=== PATIENT | male | born 1940 | race Caucasian/White ===

== ENCOUNTER → 2024-03-01 06:36 | Outpatient (REF) | payer MEDICARE, OTHER, SELFPAY ==
[2024-03-01 09:02] LABS: Blood Urea Nitrogen 35 mg/dl (9-20); Calcium 9.5 mg/dl (8.4-10.2); Carbon Dioxide 27 mmol/L (22-30); Chloride 106 mmol/L (98-107); Glucose 87 mg/dl (70-99); Potassium 5.3 mmol/L (3.5-5.1); Sodium 135 mmol/L (135-145); eGFR > 60.00
== END ==
LOC: REG 06:36
PROVIDERS: ATTENDING PHYSICIAN Internal Medicine Cardiovascular Disease; FAMILY PHYSICIAN Physician Assistant Medical
DX: I10 Essential (primary) hypertension (principal)
CPT/HCPCS: 36415; 80048

== ENCOUNTER → 2024-03-11 06:57 | Outpatient (REF) | payer MEDICARE, OTHER, SELFPAY | LOC: HWRCS 06:57 | PROVIDERS: ATTENDING PHYSICIAN Internal Medicine Cardiovascular Disease; FAMILY PHYSICIAN Physician Assistant Medical | DX: I25.5 Ischemic cardiomyopathy (principal); I25.2 Old myocardial infarction; I34.0 Nonrheumatic mitral (valve) insufficiency | CPT/HCPCS: 93306 ==

== ENCOUNTER → 2024-04-09 11:13 | Outpatient (REF) | payer MEDICARE, OTHER, SELFPAY ==
[2024-04-09 12:02] LABS: % Basophils 0.4 % (0-2); % Immature Granulocytes 0.2 % (0-0.5); % Lymphocytes 23.5 % (20.5-51.1); % Monocytes 14.4 % (1.7-9.3); % Neutrophils 49.5 % (42.2-75.2); Absolute Eosinophils 0.6 10^3/uL (0-0.7); Absolute Lymphocytes 1.1 10^3/uL (1.2-3.4); Absolute Monocytes 0.7 10^3/uL (0.1-0.6); Absolute Neutrophils 2.3 10^3/uL (1.4-6.5); Hematocrit 39.4 % (39.0-52.0); Hemoglobin 12.9 g/dL (13.0-18.0); Mean Corp Hgb Conc. 32.7 g/dL (33.0-37.0); Mean Corpuscular Hgb 33.7 pg (27.0-31.0); Mean Corpuscular Volume 102.9 fL (80.0-94.0); Mean Platelet Volume 9.2 fL (7.4-10.4); Nucleated Red Blood Cells % 0 % (-); Platelet Count 198 10^3/uL (130-400); Red Blood Cell Count 3.83 10^6/uL (4.70-6.10); Red Cell Dist. Width 13.6 % (11.5-14.5); White Blood Cell Count 4.6 10^3/uL (4.8-10.8)
[2024-04-09 12:58] LABS: PSA, Total - Screen 2.53 ng/ml (0.0-4.0)
== END ==
LOC: REG 11:13
PROVIDERS: ATTENDING PHYSICIAN Physician Assistant Medical
DX: I10 Essential (primary) hypertension (principal); I25.5 Ischemic cardiomyopathy; E78.2 Mixed hyperlipidemia; R35.1 Nocturia; Z12.5 Encounter for screening for malignant neoplasm of prostate
CPT/HCPCS: 36415; 85025; G0103

== ENCOUNTER → 2024-08-27 07:49 | Outpatient (REF) | payer MEDICARE, OTHER, SELFPAY ==
[2024-08-27 10:37] LABS: ALT (SGPT) 33 U/L (0-50); AST (SGOT) 29 U/L (17-59); Albumin 4.2 g/dl (3.5-5.0); Alkaline Phosphatase 77 U/L (38-126); Blood Urea Nitrogen 49 mg/dl (9-20); Carbon Dioxide 24 mmol/L (22-30); Chloride 107 mmol/L (98-107); Glucose 105 mg/dl (70-99); HDL Cholesterol 77 mg/dl; LDL Cholesterol, Calculated 61 mg/dl; Potassium 4.7 mmol/L (3.5-5.1); Sodium 143 mmol/L (135-145); Total Bilirubin 1.4 mg/dl (0.2-1.3); Total Cholesterol 145 mg/dl (50-199); Total Protein 6.7 g/dl (6.3-8.2); Triglyceride 38 mg/dl (10-149); Very Low Density Lipoprotein 7 mg/dl (0-30); eGFR 46.19
[2024-08-27 11:32] LABS: Folate 9.3 ng/ml (2.76-20); Vitamin B12 194 pg/ml (239-931)
== END ==
LOC: REG 07:49
PROVIDERS: ATTENDING PHYSICIAN Internal Medicine Cardiovascular Disease; FAMILY PHYSICIAN Family Medicine
DX: D75.89 Other specified diseases of blood and blood-forming organs (principal); I10 Essential (primary) hypertension; E78.00 Pure hypercholesterolemia, unspecified; Z79.899 Other long term (current) drug therapy
CPT/HCPCS: 36415; 80053; 80061; 82607; 82746

== ENCOUNTER → 2024-09-09 10:28 | Outpatient (REF) | payer MEDICARE, OTHER, SELFPAY | LOC: RCS 10:28 | PROVIDERS: ATTENDING PHYSICIAN Internal Medicine Cardiovascular Disease; FAMILY PHYSICIAN Physician Assistant Medical | DX: I35.0 Nonrheumatic aortic (valve) stenosis (principal) | CPT/HCPCS: 93306 ==

== ENCOUNTER 2024-10-22 10:13 | Emergency (ER) | payer MEDICARE, OTHER, SELFPAY ==
[2024-10-22 10:24] VITALS: BP 108/69
[2024-10-22 11:26] VITALS: BMI 26.6
--- NOTE | 2024-10-22 11:38 | EDRN ---
Keith Raya PA in room w/ pt at this time.
--- NOTE | 2024-10-22 11:55 | ED.GENMED ---
History of Present Illness
General
Chief Complaint: Musculo-Skeletal Complaint
Time Seen by Provider: 10/22/24 11:25
History of Present Illness
History of Present Illness:
84-year-old male presents to the emergency department for evaluation of redness and swelling to the left wrist that developed 2 days ago. Denies any injury but does state that he was moving furniture when the initial pain began. No prior history
of gout. No fevers or chills. Does note that he recently had a dental procedure done last week and is currently on amoxicillin for this
Past History
Past History
ED Past Medical History: None
ED Past Surgical History: None
Social History
Tobacco: Non-smoker
Personal:
Living: with family
Employment: Retired (Full [employer])
Review of Systems
Review of Systems
Allergies reviewed?: Yes
All Other Systems: ROS reviewed and negative except as documented in HPI and ROS
Phy Exam
Physical Exam
Physical Exam:
GEN: Well appearing, NAD, WDWN
HEENT: Oral mucosa moist, no scleral icterus
Cardiac: Regular rate
Lung: No respiratory distress, no tachypnea
MSK: Diffuse erythema with a left wrist effusion, mild pain with passive range of motion
Skin: Good color, no pallor or jaundice, no rashes
Neuro: AO x3, moves all extremities freely
Psych: Calm, cooperative
Course
Orders/Labs/Results
Orders:
Orders
10/22/24 10:28
Wrist, Left 3 Views CR [CR Wrist - Left Min 3 Views] Urgent
Comment:
Reason For Exam: swelling
Vital Signs
Initial and Last Documented VS:
Initial Vital Signs
Temp Pulse Resp BP Pulse Ox
98 F 82 16 108/69 98
10/22/24 10:24 10/22/24 10:24 10/22/24 10:24 10/22/24 10:24 10/22/24 10:24
Last Documented Vital Signs
Temp Pulse Resp BP Pulse Ox
98 F 82 20 123/85 98
10/22/24 10:24 10/22/24 12:08 10/22/24 12:08 10/22/24 12:08 10/22/24 10:24
MDM/Problems Addressed
MDM/Problems Addressed:
I performed a limited bedside ultrasound and I was unable to find an acceptable access point for aspiration of the left wrist. Given the lack of trauma I suspect this is an inflammatory arthropathy particular given the joint irregularity seen on
x-ray. Patient is on multiple cardiac meds thus is not suitable for NSAIDs, will place him on a course of steroids. At this time low clinical suspicion for septic arthritis however advised to return if symptoms worsen in the next 48 hours
*Critical Care Note
Total Time (30-74mins, 75-104mins- exclusive of procedures): Not Applicable
ED Attending Note
-
Portions of this chart may have been created with voice recognition software.� Occasional wrong word or��sound alike� substitutions may have occurred due to the inherent limitations of voice recognition software.
Discharge Plan
Departure
Patient Disposition: Home (Routine Discharge)
Date of Disposition: 10/22/24
Time of Disposition: 11:56
Patient with high blood pressure during this ER visit?: No
Discharge Problem:
Effusion of joint of left wrist
Instructions: Swollen Joints (DC)
Prescriptions:
New
prednisone 20 mg tablet
40 mg PO DAILY 5 Days Qty: 10 0RF
No Action
cholecalciferol (vitamin D3) 2,000 UNIT tablet
2,000 unit PO DAILY
atorvastatin 40 MG tablet
40 mg PO QPM Qty: 30 6RF
aspirin 81 MG tablet,chewable
81 mg PO DAILY Qty: 30 6RF
ticagrelor [Brilinta] 90 MG tablet
90 mg PO BID
amiodarone [Pacerone] 200 MG tablet
200 mg PO DAILY
carvedilol 3.125 MG tablet
3.125 mg PO HS
Referrals:
Irish Burnett PA [Family Provider] -
Activity Restrictions/Additional Instructions:
Return if symptoms worsen or do not improve in the next 24-48 hours
Interventions
Interventions:
*Risk Screen - Suicide Last Done: 10/22/24 10:24
*General Assessment Last Done: 10/22/24 11:22
*Neglect/Abuse Screening Last Done: 10/22/24 10:24
ED- Fall Risk Assessment Last Done: 10/22/24 11:22
*ED COVID-19 Vaccine History Last Done: 10/22/24 11:22
*Nursing Disposition Last Done: 10/22/24 12:09
ED-Musculoskeletal Assessment Last Done: 10/22/24 11:26
Discharge Date and Time
Discharge Date/Time: 10/22/24 12:10
Print Language: SLOVENIAN
[2024-10-22 12:08] VITALS: BP 123/85
== END 2024-10-22 12:10 | disposition home or self-care (01) ==
LOC: EMR 10:13
PROVIDERS: EMERGENCY PHYSICIAN Student in an Organized Health Care Education/Training Program; FAMILY PHYSICIAN Physician Assistant Medical
DX: M25.432 Effusion, left wrist (principal)
CPT/HCPCS: 99283; 73110

== ENCOUNTER → 2024-12-18 07:38 | Outpatient (REF) | payer MEDICARE, OTHER, SELFPAY ==
[2024-12-18 09:50] LABS: % Basophils 0.8 % (0-2); % Immature Granulocytes 1.5 % (0-0.5); % Lymphocytes 25.1 % (20.5-51.1); % Monocytes 12.6 % (1.7-9.3); Absolute Eosinophils 0.5 10^3/uL (0-0.7); Absolute Immature Granulocytes 0.1 10^3/uL (0-0.05); Absolute Lymphocytes 1.3 10^3/uL (1.2-3.4); Absolute Monocytes 0.7 10^3/uL (0.1-0.6); Absolute Neutrophils 2.6 10^3/uL (1.4-6.5); Hemoglobin 14.3 g/dL (13.0-18.0); Mean Corp Hgb Conc. 33.3 g/dL (33.0-37.0); Mean Corpuscular Hgb 33.6 pg (27.0-31.0); Mean Corpuscular Volume 100.9 fL (80.0-94.0); Mean Platelet Volume 9.3 fL (7.4-10.4); Nucleated Red Blood Cells % 0 % (-); Platelet Count 195 10^3/uL (130-400); Red Blood Cell Count 4.26 10^6/uL (4.70-6.10); Red Cell Dist. Width 13.9 % (11.5-14.5); White Blood Cell Count 5.2 10^3/uL (4.8-10.8)
[2024-12-18 10:19] LABS: ALT (SGPT) 30 U/L (0-50); AST (SGOT) 30 U/L (17-59); Albumin 3.8 g/dl (3.5-5.0); Alkaline Phosphatase 96 U/L (38-126); Blood Urea Nitrogen 31 mg/dl (9-20); Calcium 9.3 mg/dl (8.4-10.2); Carbon Dioxide 28 mmol/L (22-30); Chloride 104 mmol/L (98-107); Glucose 83 mg/dl (70-99); Potassium 4.2 mmol/L (3.5-5.1); Sodium 138 mmol/L (135-145); Total Bilirubin 1.3 mg/dl (0.2-1.3); eGFR > 60.00
== END ==
LOC: REG 07:38
PROVIDERS: ATTENDING PHYSICIAN Internal Medicine Cardiovascular Disease; FAMILY PHYSICIAN Physician Assistant Medical
DX: I25.5 Ischemic cardiomyopathy (principal); I50.22 Chronic systolic (congestive) heart failure
CPT/HCPCS: 36415; 80053; 85025

== ENCOUNTER 2024-12-27 11:05 | Day surgery (SDC) | payer MEDICARE, OTHER, SELFPAY ==
[2024-12-27] VITALS (9 sets, daily range): BP systolic 90–141; BP diastolic 58–78
--- NOTE | 2024-12-27 08:17 | W.ICD.CONTRA ---
Post ICD/SCARFER-D
-
History of SC?: Yes
LV Function
Left ventricular function study result?: Ejection Fraction </= 35%
ACEI/ARB/ARNI
Patient already on ACEI/ARB/ARNI: Yes
Beta-Mike
Patient already on Beta Mike: Yes
--- NOTE | 2024-12-27 12:50 | ITS.CL.ICD ---
Building Service Worker - ICD
Implantable Cardioverter Defibrillator
Procedure Report:
Dual Chamber Implantable Cardioverter Defibrillator Generator Change:
Mr. Mohamud is a very pleasant 84 years old gentleman with ischemic cardiomyopathy with chronic systolic heart failure, NYHA class III s/p a dual chamber ICD at the end of battery life is here for generator change.
Indications: Severe systolic dysfunction s/p dual chamber ICD now with elective replacement indicator
Date of the Procedure: 12/27/2024
Pre-Operative Diagnosis: Ischemic cardiomyopathy
Post-Operative Diagnosis: Ischemic cardiomyopathy
Procedure Performed: DUAL CHAMBER IMPLANTABLE CARDIOVERTER DEFIBRILLATOR GENERATOR CHANGE
Performing Physician:
Aubrey Cullen MD
Assistants:
EP staff
Anesthesia:
See anesthesia records
Detailed Description of the Procedure:
The patient was identified using hospital identification and informed consent obtained for the procedure. The risks were explained including, but not limited to: Bleeding, infection, arrhythmia, stroke, vascular/cardiac/lung puncture, surgery,
pacemaker dependency/device malfunction. All questions were answered.
The patient was brought to the electrophysiology laboratory in stable condition in fasting state. Continuous electrocardiographic and hemodynamic monitoring was initiated.
The initial rhythm was normal sinus rhythm. The device tachy-therapies were turned off.
The procedure site was meticulously prepared with surgical scrub and allowed to dry with no pooling. Sterile draping was applied to cover the procedure site. The image intensifier was draped with sterile bag and positioned over the patient.
The left infraclavicular region was prepped and draped in the usual sterile fashion. Local anesthesia was administered subcutaneously using 1% lidocaine / bupivacaine. The incision was made on the previous scar. The old ICD generator was accessed
and the adhesions were removed with care to avoid damage to the leads. The ICD capsule was cut to access the generator. The old device was attached to the underlying fascia with a suture and the suture was cut to free the device. It was removed from
the body. The Weitlaner retractor was placed in the incision and used as access to skin for unipolar pacing.
The leads were gradually removed and placed in the respective locations in the newer generator.
The old pocket and capsule was modified and the excessive scar was removed. A TYRX absorbable antibacterial envelope was used and the device was placed in the pouch with leads and placed in the modified pocket. There was excellent sensing, pacing,
and impedance from the leads.�Bovie cautery, and antibiotics were used.
The wound was irrigated thoroughly with antibiotic solution and closed in 3 layers using 2-0, VLoc sutures followed by two layers of 4-0 V loc sutures. Steri-Strips and a bandage were applied externally.�
The device was turned back on to initial setting.
Procedure End:
The procedure was tolerated well. A bandage was applied to the incision area.
Estimated Blood loss:
1 cc
Fluoro time:
0 min
Specimens Removed:
No cultures and no specimens were obtained. No intraoperative pathology was identified.
Urine output:
None
Packs / Drains/ Tubes:
None
Instrument / Sponge Count Correct:
Yes
Complications of the Procedure:
None
Condition of Patient at Time of Transfer:
Hemodynamically stable with no neurological or vascular compromise.
Device information:�
Generator: Jawbone; Model: [id number]; Serial # [id number]�
Atrial Lead: Jawbone; Model: [id number]; Serial # [id number]
Measured data in the right atrium was sensing of2 mV, impedance of 520 ohms and threshold of 0.5 V at 0.4ms�
RV Lead: Medtronic; Model: [id number]; Serial # [id number]
Measured data in the RV lead was sensing of 9 mV, impedance of 600ohms and threshold of 0.75 V at 0.4ms�
PROGRAMMING PARAMETERS:�
Reggie parameter settings were AAIR <=>DDDR 60-130 bpm. �
����������� Mode switch: On
����������� Paced AV delay: 130 ms
����������� Sensed AV delay: 1200 ms
����������� Rate Adaptive A-V Interval: Off
����������� Mode switched to VVIR now.
Output parameters:
����������������������� Amplitude (V)������������� Pulse Width (ms)������� Sensitivity (mV)
����������� RA: ����� 1.5 ����������������� 0.4������������������ 0.3
����������� RV:������ 1.5������������������ 0.4������������������ 0.3
Tachy parameter settings:
����������� SVT discrimination: On
����������� AF/AFl: On
����������� SVT limit: 260 msec
����������� VT zone:
����������������������� Slow VT: 150 - 167 bpm --> Monitor
����������������������� Fast VT: 167-188 bpm --> ATP then CV
����������������������� VF: > 188 bpm --> Shock x6 (ATP before and during)
�����������
Summary:
Successful generator change of dual chamber Medtronic ICD pacemaker
Results/Recommendations:
1. Please provide patient with adequate pain control�
Instructions to be given to patient:�
- Please follow up with [facility] at [address] [place] [address] ([phone]) to get your wound checked within 7 days of your discharge.
- Do not wet incision site until after it is evaluated at cardiology clinic. No showers until then. Sponge baths are OK.�
- Allow 'steri strips' to fall off on their own�
- If you notice any fevers, shortness of breath, lightheadedness, chest pain, or worsening swelling in the wound site, please contact the arrhythmia clinic, contact your pan puller, or present to the hospital for evaluation.�
Aubrey Cullen MD
Electrophysiology
== END 2024-12-27 14:20 | disposition home or self-care (01) ==
LOC: CATH 11:05
PROVIDERS: ATTENDING PHYSICIAN Internal Medicine Cardiovascular Disease; FAMILY PHYSICIAN Physician Assistant Medical; OTHER PHYSICIAN Internal Medicine Cardiovascular Disease
DX: Z45.02 Encounter for adjustment and management of automatic implantable cardiac defibrillator (principal); I25.5 Ischemic cardiomyopathy; I50.22 Chronic systolic (congestive) heart failure; Z79.82 Long term (current) use of aspirin; Z79.899 Other long term (current) drug therapy; Z79.84 Long term (current) use of oral hypoglycemic drugs
CPT/HCPCS: 33263; C1721

== ENCOUNTER → 2025-03-02 09:41 | Outpatient (REF) | payer MEDICARE, OTHER, SELFPAY ==
[2025-03-02 11:25] LABS: Vitamin B12 748 pg/ml (239-931)
== END ==
LOC: REG 09:41
PROVIDERS: ATTENDING PHYSICIAN Physician Assistant Medical
DX: E53.8 Deficiency of other specified B group vitamins (principal)
CPT/HCPCS: 36415; 82607

== ENCOUNTER → 2025-05-26 13:33 | Outpatient (REF) | payer MEDICARE, OTHER, SELFPAY ==
--- NOTE | 2025-05-26 14:56 | CARDSERVDEF ---
Echocardiogram with Definity completed after protocol screening completed. Allergies verified.
Patent IV site: _Right median antecubital 22 G PC site clear____
IV site flushed with 0.9% NaCl pre and post administration.
Diluted bolus method utilized to enhance visualization of ventricular martines.
Total volume given: __4__ mL
Patient tolerated all procedures well without complications.
Heplock D/C ed at 1453, site clear. Pressure held, no bleeding, 2x2 applied and taped. Pt offers no complaints.
== END ==
LOC: RCS 13:33
PROVIDERS: ATTENDING PHYSICIAN Internal Medicine Cardiovascular Disease; FAMILY PHYSICIAN Physician Assistant Medical
DX: I25.5 Ischemic cardiomyopathy (principal); I10 Essential (primary) hypertension; I50.22 Chronic systolic (congestive) heart failure; I35.0 Nonrheumatic aortic (valve) stenosis
CPT/HCPCS: 93306; Q9950

== ENCOUNTER 2025-06-22 10:39 | Inpatient (IN) | payer MEDICARE, OTHER, SELFPAY ==
--- NOTE | 2025-06-08 12:20 | CM ---
Addendum entered by Erma Licona RN 06/09/25 10:18:
Demographics: Confirmed.
Living situation: lives independently with
Support Person Post Operatively:
History of
VN:NONE
SNF: None
Outpatient: [facility]
Has patient purchased required equipment: yes
PCP: Dr. Burnett
Pharmacy: [facility]
Post Operative Discharge Plan: Home with outpatient PT
Original Note:
CM left message on 05/31 and 06/08 for orthopedic IA.
[2025-06-08 13:53] VITALS: BMI 23.7
[2025-06-08 13:57] LABS: Hematocrit 42.7 % (39.0-52.0); Hemoglobin 14.5 g/dL (13.0-18.0); Mean Corp Hgb Conc. 34.0 g/dL (33.0-37.0); Mean Corpuscular Volume 101.2 fL (80.0-94.0); Platelet Count 198 10^3/uL (130-400); Red Cell Dist. Width 14.0 % (11.5-14.5)
[2025-06-08 14:48] VITALS: BMI 23.7
[2025-06-08 16:04] LABS: ALT (SGPT) 26 U/L (0-50); AST (SGOT) 27 U/L (17-59); Albumin 4.1 g/dl (3.5-5.0); Alkaline Phosphatase 83 U/L (38-126); Blood Urea Nitrogen 28 mg/dl (9-20); Calcium 9.4 mg/dl (8.4-10.2); Carbon Dioxide 25 mmol/L (22-30); Chloride 105 mmol/L (98-107); Estimated Creatinine Clearance 42 ml/min; Glucose 137 mg/dl (70-99); Potassium 4.3 mmol/L (3.5-5.1); Sodium 137 mmol/L (135-145); Total Protein 6.4 g/dl (6.3-8.2); eGFR 54.85
[2025-06-09 09:32] LABS: Glycohemoglobin (HgbA1c) 5.4 % (4.0-5.6)
[2025-06-22] VITALS (12 sets, daily range): BP systolic 84–110; BP diastolic 48–64; PULSE 57; O2SAT 98; BMI 23.7
[2025-06-22] MEDS: CELEBREX 200 MG PO (11:34)
[2025-06-22] MEDS: TYLENOL 650 MG PO ×3 (11:34→20:04)
[2025-06-22] MEDS: NORMOSOL-R/PLASMALYTE-A 1000 IV ×2 (11:47→16:55)
--- NOTE | 2025-06-22 11:52 | W.PN.ORTHO ---
Today's Communication / Plan
-
d/c when stable
Assessment
.
Dressing:
Clean, dry and intact.
Assessment:
[id number] LAD 12/2014
Vtach-s/p ICD 04/2015
ICM/MTnII-30-288%
-moderate
-tele
-decrease IVF rate
-daily weights
-given need for GDMT-+ Midodrine w/ parameter to avoid orthostasis
Mild renal impairment compared to baseline-avoid excessive NSAIDs/nephrotoxic agents
Plan
.
Surgery / Date: R JENNIFER Case 06/22/25
DVT Prophylaxis: Aspirin
Activity:
Out of bed.
PT/OT
Discharge Plan: Home w/ Outpatient PT
Vital Signs and Labs
.
Vital Signs and Labs:
Lab Results
06/08/25 13:34
06/08/25 13:34
Temp Pulse Resp BP Pulse Ox
98.1 F 61 12 110/62 99
06/22/25 11:13 06/22/25 11:13 06/22/25 11:13 06/22/25 11:13 06/22/25 11:13
--- NOTE | 2025-06-22 12:09 | W.DS.TRANS ---
DC Summary - Files Supervisor
-
Discharge Instructions:
Sleep Apnea Risk Intermediate
Discharge Diagnosis/Procedures R TKA Dr. Case 06/22/25
Diet Diabetic, Carb Controlled
Activity With Walker
Driving Restrictions No driving
Bathing Restrictions OK to Shower
Other Services PT
Instructions:
Stand-Alone Forms: Total Hip/Knee Replacement D/C
Changes to Home Medications: Yes
Discharge Medications:
DC Medications w/original date entered in [employer]
cholecalciferol (vitamin D3) 50 mcg (2,000 unit) tablet 2,000 unit PO QPM 12/10/14
carvedilol 3.125 mg tablet 3.125 mg PO BID 04/10/15
cyanocobalamin (vitamin B-12) 1,000 mcg tablet (Vitamin B-12) 1,000 mcg PO QPM 12/27/24
empagliflozin 10 mg tablet (Jardiance) 10 mg PO DAILY 12/27/24
atorvastatin 80 mg tablet 80 mg PO DAILY 06/07/25
sacubitril 24 mg-valsartan 26 mg tablet (Entresto) 1 tab PO BID 06/07/25
mupirocin 2 % topical ointment 1 applic intranasal BID #1 tube 06/08/25
dexamethasone 4 mg tablet 4 mg PO BID Anti-inflammatory #7 tabs 06/17/25
famotidine 20 mg tablet (Pepcid) 20 mg PO HS #30 tabs 06/17/25
gabapentin 300 mg capsule 300 mg PO HS neuropathic pain/sleep #10 caps 06/17/25
ondansetron HCl 4 mg tablet 4 mg PO Q6H PRN nausea and vomiting #30 tabs 06/17/25
oxycodone 5 mg tablet 5 - 10 mg (1 - 2 x 5 mg) PO Q6H PRN moderate-severe pain #30 tabs 06/17/25
aspirin 325 mg tablet 325 mg PO DAILY blood clot prevention #1 tab 06/22/25
azelastine 2 spray intranasal BID 06/22/25
docusate sodium 100 mg capsule (Colace) 100 mg PO BID stool softner #1 cap 06/22/25
magnesium hydroxide 400 mg/5 mL oral suspension (Milk of Magnesia) 30 ml PO HS PRN constipation #1 mL 06/22/25
sennosides 8.6 mg tablet (Senokot) 17.2 mg (2 x 8.6 mg) PO BID laxative #2 tabs 06/22/25
Home Medication Changes
mupirocin 2 % topical ointment 1 applic intranasal BID #1 tube 06/08/25
dexamethasone 4 mg tablet 4 mg PO BID Anti-inflammatory #7 tabs 06/17/25
famotidine 20 mg tablet (Pepcid) 20 mg PO HS #30 tabs 06/17/25
gabapentin 300 mg capsule 300 mg PO HS neuropathic pain/sleep #10 caps 06/17/25
ondansetron HCl 4 mg tablet 4 mg PO Q6H PRN nausea and vomiting #30 tabs 06/17/25
oxycodone 5 mg tablet 5 - 10 mg (1 - 2 x 5 mg) PO Q6H PRN moderate-severe pain #30 tabs 06/17/25
aspirin 325 mg tablet 325 mg PO DAILY blood clot prevention #1 tab 06/22/25
azelastine 2 spray intranasal BID 06/22/25
docusate sodium 100 mg capsule (Colace) 100 mg PO BID stool softner #1 cap 06/22/25
magnesium hydroxide 400 mg/5 mL oral suspension (Milk of Magnesia) 30 ml PO HS PRN constipation #1 mL 06/22/25
sennosides 8.6 mg tablet (Senokot) 17.2 mg (2 x 8.6 mg) PO BID laxative #2 tabs 06/22/25
Pending Results: No
--- NOTE | 2025-06-22 16:00 | PTCARENOTE ---
received patient from pacu to room 2101. pt AAOX3. pt denies pain. right knee with aquacel dressing CDI. +dp pulse. pt able to move toes and has good feeling in right leg. pt tolerating ice chips and water. pt denies nausea. denies urge to void at
this time. pt updated on plan of care. see worklist for full nursing assessment.
[2025-06-22] MEDS: FARXIGA 10 MG PO (17:04)
[2025-06-22] MEDS: DECADRON 4 MG IV (17:04)
[2025-06-22] MEDS: ASPIRIN 325 MG PO (17:04)
[2025-06-22] MEDS: LIPITOR 80 MG PO (17:04)
--- NOTE | 2025-06-22 17:12 | OR.RPT ---
Operative Report
Operative Report
Orthopaedic Surgery Operative Note
DATE OF OPERATION: 06/22/2025
PREOPERATIVE DIAGNOSES: Osteoarthritis, right knee.
POSTOPERATIVE DIAGNOSES: Osteoarthritis, right knee.
OPERATION PERFORMED:
1) Right total knee arthroplasty (CPT 72554)
2) Intraosseous administration of analgesic (CPT 57761)
SURGEON: Manish Case MD
ASSISTANTS: Randy Rojo PA-C who helped with patient and limb positioning and retraction
ANESTHESIA: Spinal by anesthesia plus intraoperative infusion of morphine into the tibial metaphysis by Dr. Case
COMPLICATIONS: None.
ESTIMATED BLOOD LOSS: 20mL
DRAINS: None
TOURNIQUET TIME: 52 minutes.
IMPLANTS:
- Bill Persona CR Femur, size 11
- Bill Persona tibia base plate, size F
- Bill Persona ultracongruent articular surface, 11 mm
- All-polyethylene patellar component, size 35
- DJO [place] bone cement
INDICATIONS: The patient presented to my office with debilitating right knee pain due to osteoarthritis. We reviewed the natural history of this problem, as well as the risks, benefits, and alternatives of various treatment options. The patient
exhausted all nonoperative treatment options and wished to proceed with knee replacement surgery. The patient understood the risks which included, but were not limited to, bleeding, infection, failure to relieve pain, more pain than preop, damage to
blood vessels and nerves, need for reoperation, mechanical failure of the implants, wound healing problems, stiffness, instability, blood clot, pulmonary embolism, myocardial infarction, pneumonia, arrhythmia, CVA, and . The patient accepted
these risks and wished to proceed. All questions were answered, and informed consent was obtained.
PROCEDURE IN DETAIL: The patient was identified in the preoperative holding area. The right knee was identified as the operative site. The patient was taken in the operating room and placed in a supine position on the operating table. Spinal
anesthesia was performed. IV antibiotics and tranexamic acid were administered. An SCD was placed on the left lower extremity. A well-padded tourniquet was placed on the proximal thigh. All bony prominences were well padded. The right lower
extremity was prepped and draped in the usual sterile fashion.
We performed a surgical time-out. An interarticular block was performed with local anesthetic with epinephrine. The limb was exsanguinated with an Esmarch bandage, then the tourniquet was inflated to 250 mmHg. I performed interosseous administration
of morphine-saline solution via a Jamshidi style intraosseous needle into the proximal medial tibial metaphysis as described by Silas Wilder MD. This was performed to aid in pain control. A midline skin incision was made followed by a medial
parapatellar arthrotomy. A subperiosteal peel was performed on the medial tibia. I excised part of the infrapatellar fat pad to improve our visualization as well as tissue over anterior femur. The patella was everted and the knee was flexed. I
excised the remnants of the anterior and posterior cruciate ligaments as well as tibial and femoral osteophytes with rongeurs.
The knee was flexed, and the extramedullary tibial cutting guide was aligned. [place] was aligned at neutral, rotation was centered on the tibial tubercle, and coronal alignment was aligned with the mechanical axis of the tibia and center of the ankle
joint. The cut height was 10mm off the lateral tibia joint surface. The guide was secured into place. The MCL and LCL were protected. The tibia surface was cut. The cut surface was inspected after removal to ensure appropriate height and slope based
on the preoperative plan. The cut was checked with a drop melissa. It was centered nicely at the ankle.
A drill was used to open the femoral canal. The intramedullary distal femoral cutting guide was inserted into the femur. This was set at 5 degrees +0. This was secured into place with three pins. The cut level was checked with an sarthak wing. The
distal femur was cut through the cutting guide. The IM guide was reinserted to double check that the level of resection was flush and in appropriate alignment.
Starkweather�s line and the transepicondylar axis were marked on the femur. The femoral sizing guide was applied to the anterior femur. Pins were inserted, and the 4-in-1 cutting guide was applied and secured into place. The rotation was compared to
Starkweather�s line, the transepicondylar axis, and the neutral tibia cut and was found to be appropriate. The width was checked and found to be appropriate and lateralized on the femur. The anterior, posterior, and chamfur cuts were made. A lamina
asphalt spreader operator was used to open the flexion gap, and posterior osteophytes were removed with a curved osteotome. The remnant medial and lateral meniscus were also removed. I prophylactically cauterized the lateral geniculate arteries. A 10mm spacer block
was applied to the flexion gap and was noted to be balanced medially and laterally. The knee was extended, and the block showed symmetric to extension and flexion gaps.
The tibia was exposed and sized. Rotation was set in line with the tibial tubercle and congruent with the femur. The trial was secured into place with two pins. The trial femur was impacted into place, and a trial articular surface was placed. The
knee was taken through range of motion and noted to be stable throughout the arc of motion without gaping or excess tension. In extension, a measured resection of the patella was performed. The patella was sized, and lug holes were drilled. A trial
patella component was applied, and it was noted to track centrally throughout the arc of motion without need for further releases.
The trials were removed. The tibia keel was prepared with the punch and the drill. The bone surfaces were irrigated with sterile saline and dried. The cement was mixed in a vacuum mixer. Cement gun was used to apply cement to the tibial surface and
the undersurface of the tibial implant. Cement was pressurized into the tibial canal and tibia surface. The tibial component was impacted into place. Excess cement was removed. Cement was applied to the femoral surface and the femoral component. The
femoral component was impacted into place, and excess cement removed. A trial articular surface was inserted, and the knee was extended while the cement polymerized. The tourniquet was let down, and meticulous hemostasis was achieved. Dilute
betadine was poured into the wound and allowed to soak for 3 minutes. The knee was irrigated with copious normal saline.
Once the cement was polymerized, the trial articular surface was removed. Any excess cement was removed. The knee was trialed, and the final articular surface was selected and inserted into the tibial locking mechanism. The knee was reduced. A fresh
drape was applied to the surgical field.
The arthrotomy was closed with 0-PDS. Once closed, an interarticular block was performed with local anesthetic with epi. The deep dermal layer was closed with 2-0 PDS, and the subcuticular skin was closed with 3-0 monocryl. A Dermabond Prineo
dressing was applied to the skin in full flexion. Once this was completely dry, a sterile waterproof dressing was applied.
The anesthesia team performed an adductor canal block in the OR. The patient awoke from anesthesia without any difficulties. The sponge and instrument counts were correct x2 at the end of the case.
Rene Case MD
[2025-06-22] MEDS: COLACE 100 MG PO (20:03)
[2025-06-22] MEDS: ANCEF 5 IV (20:03)
[2025-06-22] MEDS: COREG PO ×2 (20:03→21:08)
[2025-06-22] MEDS: SENOKOT 17.2 MG PO (20:04)
[2025-06-22] MEDS: ENTRESTO 24 MG/26 MG PO ×2 (20:04→21:08)
[2025-06-22] MEDS: BACTROBAN 2% OINTMENT 1 APPLIC NASAL (20:41)
--- NOTE | 2025-06-22 22:36 | PTCARENOTE ---
ax3 refused some hs meds see mar- wishes to be left undisturbed- explained to him we have to assess vitals sx site etc. he wishes to be left alone- assured him we will try to let him sleep as much ass we can and minimize sleep disruptions per his
request- a paced. vitals soft side- urinated oob with walker- refuses pain meds says he has to tough it out.
[2025-06-23] MEDS: TYLENOL PO ×4 (00:08→08:21)
[2025-06-23 03:00] VITALS: BP 100/58
[2025-06-23] MEDS: ANCEF 5 IV (04:49)
[2025-06-23] MEDS: DECADRON 4 MG IV (05:00)
[2025-06-23 05:52] VITALS: BMI 24.7
[2025-06-23 07:58] VITALS: BP 117/98; PULSE 71; O2SAT 97
[2025-06-23] MEDS: ENTRESTO 24 MG/26 MG 1 TAB PO (08:07)
[2025-06-23] MEDS: SENOKOT PO ×2 (08:07→08:20)
[2025-06-23] MEDS: FARXIGA 10 MG PO (08:08)
[2025-06-23] MEDS: BACTROBAN 2% OINTMENT 1 APPLIC NASAL (08:08)
[2025-06-23] MEDS: COREG 3.125 MG PO (08:08)
[2025-06-23] MEDS: ASPIRIN 325 MG PO (08:08)
[2025-06-23] MEDS: COLACE PO ×2 (08:09→08:21)
[2025-06-23] MEDS: TORADOL 10 MG IV (08:10)
[2025-06-23] MEDS: FLUSH (NSS) 2 FLUSH IV (08:13)
[2025-06-23 08:15] VITALS: BP 117/98
--- NOTE | 2025-06-23 09:01 | CM ---
Cm reviewed medical records. Patient confirmed outpatient PT appointment. Patient is looking forward to discharge.
PLAN: Home with outpatient PT.
--- NOTE | 2025-06-23 11:12 | W.PN.ORTHO ---
Today's Communication / Plan
-
d/c
Assessment
.
Distal Motor Intact: Yes
Dressing:
Clean, dry and intact.
Assessment:
[id number] LAD 12/2014
Vtach-s/p ICD 04/2015
ICM/HFrEF-30-35%
-moderate
-stable on tele
-decreased IVF rate
-daily weight
-given need for GDMT-+ Midodrine w/ parameter to avoid orthostasis--BP good range
Mild renal impairment compared to baseline [id number] excessive NSAIDs/nephrotoxic agents
Plan
.
Surgery / Date: R JENNIFER Case 06/22/25
DVT Prophylaxis: Aspirin
Activity:
Out of bed.
PT/OT
Discharge Plan: Home w/ Outpatient PT
Subjective
.
.:
Patient resting comfortably.
Vital Signs and Labs
.
Vital Signs and Labs:
Lab Results
06/08/25 13:34
06/08/25 13:34
Temp Pulse Resp BP Pulse Ox
97.7 F 71 17 117/98 97
06/23/25 08:15 06/23/25 08:15 06/23/25 08:15 06/23/25 08:15 06/23/25 08:15
Physical Exam
-
Medications on admission are unable to be verified or confirmed at this time.
[2025-06-23 11:35] VITALS: BP 131/73
== END 2025-06-23 11:55 | disposition home or self-care (01) | DRG 470 ==
LOC: 2 SOUTH 10:39
PROVIDERS: ADMITTING PHYSICIAN Orthopaedic Surgery; FAMILY PHYSICIAN Surgery; REFERRING PHYSICIAN Internal Medicine Cardiovascular Disease
PROC: 0SRC0J9 Replacement of Right Knee Joint with Synthetic Substitute, Cemented, Open Approach (ICD-10-PCS; 2025-06-22)
DX: M17.11 Unilateral primary osteoarthritis, right knee (principal); I50.20 Unspecified systolic (congestive) heart failure; I47.20 Ventricular tachycardia, unspecified; E78.00 Pure hypercholesterolemia, unspecified; I11.0 Hypertensive heart disease with heart failure; I25.10 Atherosclerotic heart disease of native coronary artery without angina pectoris; Z98.61 Coronary angioplasty status; I25.2 Old myocardial infarction; Z95.810 Presence of automatic (implantable) cardiac defibrillator; I25.5 Ischemic cardiomyopathy; E53.8 Deficiency of other specified B group vitamins
CPT/HCPCS: 36415; 73560; 80053; 83036; 85027; 87070; 97110; 97116; 97162; 97166; 97535; C1713; C1776

== ENCOUNTER → 2025-09-17 07:43 | Outpatient (REF) | payer MEDICARE, OTHER, SELFPAY ==
[2025-09-17 09:35] LABS: ALT (SGPT) 34 U/L (0-50); AST (SGOT) 28 U/L (17-59); Albumin 4.0 g/dl (3.5-5.0); Alkaline Phosphatase 80 U/L (38-126); Blood Urea Nitrogen 36 mg/dl (9-20); Calcium 9.4 mg/dl (8.4-10.2); Carbon Dioxide 29 mmol/L (22-30); Chloride 104 mmol/L (98-107); Glucose 88 mg/dl (70-99); HDL Cholesterol 68 mg/dl; LDL Cholesterol, Calculated 67 mg/dl; Potassium 4.7 mmol/L (3.5-5.1); Sodium 135 mmol/L (135-145); Total Protein 6.6 g/dl (6.3-8.2); Very Low Density Lipoprotein 11 mg/dl (0-30); eGFR 54.51
[2025-09-17 09:53] LABS: PSA, Total - Screen 2.59 ng/ml (0.0-4.0); TSH 1.06 uIU/ml (0.47-4.68)
== END ==
LOC: REG 07:43
PROVIDERS: ATTENDING PHYSICIAN Physician Assistant Medical; REFERRING PHYSICIAN Internal Medicine Cardiovascular Disease
DX: R35.1 Nocturia (principal); E78.00 Pure hypercholesterolemia, unspecified; I25.5 Ischemic cardiomyopathy; E78.2 Mixed hyperlipidemia; Z12.5 Encounter for screening for malignant neoplasm of prostate
CPT/HCPCS: 36415; 80053; 80061; 83880; 84443; G0103